=== PATIENT | male | born 1955 | race Caucasian/White ===

== ENCOUNTER → 2023-10-03 14:59 | Outpatient (REF) | payer OTHER, SELFPAY ==
--- NOTE | 2023-10-03 15:00 | CA_ITS ---
Transthoracic Echocardiogram Patient (Last, First, Middle): Marlon Olmstead, Gender: Male Date of : 1955 Age: 68 Procedure Date: 10/03/2023 Procedure Type: Transthoracic Echocardiogram Location: OP Height: 165.1 cm Weight: 74.84 kg BSA: 1.82 m2 Heart Rate: bpm BP: 120 / 70 mmHg Partner Marketing Manager: [email or web address] Referring MD: Shade Acharya MD Symptoms: R07.89 CHEST PAIN Study Quality: Adequate ECG Rhythm: Sinus Conclusions: - The left ventricular systolic function is normal. The calculated ejection fraction is 62% by biplane method. - Possible basal inferior hypokinesis. - No obvious valvular pathology seen on this study. Findings Left Ventricle Normal left ventricular cavity size. There is normal left ventricular wall thickness. The left ventricular systolic function is normal. The calculated ejection fraction is 62% by biplane method. Diastolic function is normal for age. Possible basal inferior hypokinesis. LV peak GLS diminished at -13.4%. Right Ventricle Normal right ventricular cavity size and systolic function. Atria Both atria are normal in size. Aortic Valve There is a normal trileaflet aortic valve. There is no aortic valve stenosis. There is no aortic valve regurgitation. Mitral Valve The mitral valve appears normal. There is trace mitral valve regurgitation. There is no mitral valve stenosis. Pulmonic Valve The pulmonic valve is likely normal. Tricuspid Valve Normal tricuspid valve structure. There is trace tricuspid valve regurgitation. There is no evidence of pulmonary hypertension. Great Vessels The asc aorta is normal in size. Venous The inferior vena cava is normal in size and collapses greater than 50% with inspiration. Pericardium/Pleural There is no evidence of pericardial effusion. Prior Study Comparison No prior study available for comparison. Recommendations, Care & Conclusions No obvious valvular pathology seen on this study. Measurements 2D Linear Measurements IVSd: 0.83 0.6-0.9/0.6-1.0 cm LVIDd: 4.35 3.9-5.3/4.2-5.9 cm LVIDd Index: 2.39 2.4-3.2/2.2-3.1 cm/m2 LVIDs: 2.84 2.0-3.6 cm LVPWd: 0.95 0.7-1.1 cm LA Diam: 3.10 2.7-3.8/3.0-4.0 cm LAIDs Index: 1.70 1.5-2.3 cm/m2 LV Mass: 154.31 67-162/88-224 g LV Mass Index: 84.78 43-95/49-115 g/m2 LVOT Diam: 1.90 3.0+(-)1.3 cm 2D Systolic Function EF 4C: 60.90 >55% EF 2C: 63.70 >55% EF BiP: 61.50 >55% Mitral Valve MV Pk E: 0.74 MV PK A: 0.87 MV Decel Time: 139.00 E/A: 0.80 E'Lateral: 7.07 E'Medial: 6.09 E/E' Med: 12.10 E/E' Lat: 10.40 PHT: 41.00 MVA PHT: 5.37 Decel Campbell: 5.30 Aortic Valve AoV Pk Evangelist: 1.21 AoV Mn Evangelist: 0.84 AoV VTI: 0.23 AoV Pk Grad: 6.00 Aov Mn Grad: 3.00 NICOLE Cont.VTI: 2.11 LVOT LVOT Pk Evangelist: 0.86 LVOT Mn Evangelist: 0.58 LVOT VTI: 0.17 LVOT Pk Grad: 3.00 LVOT Mn Grad: 2.00 LVOT Diam: 1.90 LVOT Area: 2.84 Diastolic Function MV Pk E: 0.74 MV Pk A: 0.87 E/A: 0.80 E'Medial: 6.09 E/E' Med: 12.10 E' Laterial: 7.07 E/E' Lat: 10.40 Right Ventricle TAPSE (mm): 20.80 TVS' Evangelist: 12.00 Tricuspid Valve RA Press: 3.00 Great Vessels Aorta Sinus of Valsalva: 3.16 2.0-3.[address] Ridge: 2.69 1.7-3.4 cm Ao Asc: 2.90 2.1-3.4 cm Updated in Other Vendor System with Status of Final Ang Bautista MD electronically signed on 10/05/2023 8:49:17 AM with status of Final
== END ==
LOC: HO.CARD 14:59
PROVIDERS: PCP Internal Medicine; Visit Provider Internal Medicine
DX: R07.89 Other chest pain (principal)
CPT/HCPCS: 93306; 93356

== ENCOUNTER → 2023-10-03 15:00 | Outpatient (BNV) | payer OTHER, SELFPAY | PROVIDERS: PCP Internal Medicine; Visit Provider Internal Medicine | DX: R07.89 Other chest pain (principal) | CPT/HCPCS: 93306 ==